=== PATIENT | male | born 1935 | race Caucasian/White ===

== ENCOUNTER 2018-10-14 16:51 | Outpatient (REF) | payer MEDICARE, OTHER, SELFPAY ==
[2018-10-14 19:25] LABS: HCT 31.7 % (40.0-50.0); HGB 10.9 g/dL (13.5-17.5); Mean Corp. HGB Concentration 34.4 g/dL (32.0-36.0); Mean Corpuscular Hemoglobin 32.2 pg (27.0-33.0); Mean Corpuscular Volume 93.5 fL (80-95); Mean Platelet Volume 11.3 fL (8.0-11.0); Platelet Count 114 x1000/uL (130-400); RBC 3.39 m/cumm (4.50-6.00); RBC Distribution Width 11.8 % (11.8-14.1); White Blood Cell Count 4.38 k/cumm (4.4-10.8)
[2018-10-14 19:52] LABS: ALT 26 U/L (12-78); AST 20 U/L (15-37); Albumin 3.9 g/dL (3.4-5.0); Alkaline Phosphatase 48 U/L (46-116); Anion Gap 8.3 mmol/L (3-11); BUN 28 mg/dL (7-18); Bilirubin, Total 0.2 mg/dL (0.2-1.0); CO2 28.7 mmol/L (21.0-32.0); CREATININE 1.04 mg/dL (0.70-1.30); Calcium 9.1 mg/dL (8.5-10.1); Chloride 104 mmol/L (98-107); Glucose 176 mg/dL (70-100); Potassium 4.3 mmol/L (3.5-5.1); Sodium 141 mmol/L (136-145); TSH 2.01 uIU/mL (0.358-3.74); Total Protein 7.2 g/dL (6.4-8.2)
== END 2018-10-14 17:11 ==
LOC: NCHCN 16:51
PROVIDERS: PCP Internal Medicine; Visit Provider Internal Medicine
DX: I10 Essential (primary) hypertension (principal); L30.9 Dermatitis, unspecified
CPT/HCPCS: 80053; 85027; 84443

== ENCOUNTER 2018-11-08 07:35 | Outpatient (CLI) | payer MEDICARE, OTHER, SELFPAY ==
--- NOTE | 2018-11-08 09:30 | MERGEMPI_ITS ---
*[facility]* *[facility]* [address] [place] [address] Myocardial Perfusion Imaging - SPECT Regadenoson Date of study: 11/08/2018 *PATIENT PRESENTATION* Height: 170.2cm (67in) Blood Pressure: Weight: 83.6kg (184lb) BSA: 2.01m^2 Referring physician: Abel Maxwell MD Ordering physician: Redd Obregon MD Impressions: Normal perfusion by Tc99m Sestamibi Imaging. Summary: 1. Myocardial perfusion imaging: No myocardial perfusion defects noted. 2. The calculated left ventricular ejection fraction after stress: 54%. No left ventricular regional motion abnormality. Indication: R07.9. History: REASON FOR VISIT: CHEST PAIN. DESCRIBED BY PT A SLIGHT DISCOMFORT HIS LAST EPISODE WAS TWO WEEKS AGO WHILE SITTING DOWN. IT ONLY LASTED A FEW SECONDS. Risk factors: BORDERLINE DIABETES. Family history of coronary artery disease. Hypertension. Diabetes mellitus. Dyslipidemia. ALLERGIES: PENICILLIN. MEDICATIONS: LISINOPRIL. ATORVASTATIN. GLUCOSAMINE CHOND COMPLEX. ZOLPIDEM TARTRATE 5 MG DAILY. ASPIRIN 81 MG DAILY. SERTRALINE 50 MG DAILY. Imaging Technique: Protocol: Regadenoson. Acquisition: Gated SPECT; 1 day - rest/stress. The patient was imaged in the supine position. Attenuation correction used. Isotope administration: - Rest. Tc[99m]-sestamibi. Dose: 10.1mCi. Injection time: 09:50 AM. Injection to stress time: 00:45. - Stress. Tc[99m]-sestamibi. Dose: 33.1mCi. Injection time: 12:20 PM. 1-2 min before end of exercise Baseline ECG: SINUS RYTHM. PACs HR 66 BPM. Stress protocol: +--------+--+ + + !Stage !HR!BP (mmHg) !Comments ! +--------+--+ + + !Baseline!66!170/78 (109)! ! +--------+--+ + + !1 min !90!176/70 (105)!Inject Regadenoson.! +--------+--+ + + !3 min !86!180/72 (108)! ! +--------+--+ + + !6 min !83!160/76 (104)! ! +--------+--+ + + * Stress results: The rate-pressure product for the peak heart rate and blood pressure was 17102rq Hg/min. Stress ECG: STRESS TEST ENDED IN 6 MINUTES AND 16 SECONDS. PT EXPERIENCED NO SIDE EFFECTS FROM LEXISCAN INJECTION. NORMAL HEART RATE AND BLOOD PRESSURE RESPONSE TO LEXISCAN INJECTION. FREQUENT PACs. NO ANGINA. NO SIGNIFICANT ST SEGMENT CHANGES. Myocardial perfusion: Imaging information: gated. No myocardial perfusion defects noted. Ventricular Function (Wall Motion): The calculated left ventricular ejection fraction after stress: 54%. No left ventricular regional motion abnormality. Study data: Abel Maxwell MD supervised and was readily available during the procedure. This study was interpreted by [facility]. Study status: Routine. Consent: The risks, benefits, and alternatives to the procedure were explained to the patient and informed consent was obtained. Procedure: Initial setup. A baseline ECG was recorded. Surface ECG leads and manual cuff blood pressure measurements were monitored. Heart sounds: Normal. Lung sounds: Normal. Regadenoson stress test. Stress testing was performed, with regadenoson by intravenous bolus, for a total dose of 0.4mgover 10.00sec, followed by a 5ml saline flush. The infusion was terminated due to per protocol. The patient was unable to exercise due to leg, joint, or back pain. Study completion: All catheters inserted during the procedure were removed. The patient tolerated the procedure well and was discharged from the lab. Discharge: The patient left the laboratory in stable condition. Birthdate: Patient birthdate: 1935. Sex: Gender: male. Study date: Study date: 11/08/2018. Study time: 00:01 AM. Electronically signed by Abel Maxwell MD 11/08/2018 16:20
[2018-11-08] MEDS: Regadenoson 0.4 MG/5 ML SYR IVP (12:14)
== END 2018-11-08 07:55 ==
PROVIDERS: PCP Internal Medicine; Visit Provider Internal Medicine
DX: R07.9 Chest pain, unspecified (principal); I10 Essential (primary) hypertension
CPT/HCPCS: 78452; 93016; 93018; 93017; J2785

== ENCOUNTER 2019-01-04 10:32 | Outpatient (REF) | payer MEDICARE, OTHER, SELFPAY ==
[2019-01-06 09:59] LABS: PSA, Diagnostic 3.7 ng/ml (0-6.5)
== END 2019-01-04 10:52 ==
LOC: NCHCN 10:32
PROVIDERS: PCP Internal Medicine; Visit Provider Internal Medicine
DX: M54.31 Sciatica, right side (principal); M54.32 Sciatica, left side
CPT/HCPCS: 84153

== ENCOUNTER 2019-02-28 14:06 | Outpatient (REF) | payer MEDICARE, OTHER, SELFPAY ==
[2019-02-28 19:05] LABS: COMMENT (LAB VIEW ONLY) 167.17 mg/dL; Microalb ug/mg Crea 5.4 ug/mg Cr
== END 2019-02-28 14:26 ==
LOC: NCHCO 14:06
PROVIDERS: PCP Internal Medicine; Visit Provider Internal Medicine
DX: R07.89 Other chest pain (principal); E11.9 Type 2 diabetes mellitus without complications; I10 Essential (primary) hypertension; M54.31 Sciatica, right side
CPT/HCPCS: 82043; 82570

== ENCOUNTER 2019-10-10 10:34 | Outpatient (REF) | payer MEDICARE, OTHER, SELFPAY ==
[2019-10-10 19:31] LABS: ALT 27 U/L (16-63); Anion Gap 9.4 mmol/L (3-11); BUN 25 mg/dL (7-18); CO2 27.6 mmol/L (21.0-32.0); CREATININE 1.04 mg/dL (0.70-1.30); Calcium 8.9 mg/dL (8.5-10.1); Chloride 103 mmol/L (98-107); Glucose 156 mg/dL (74-106); LDL CHOLESTEROL 67 mg/dL (<100); Potassium 4.2 mmol/L (3.5-5.1); Sodium 140 mmol/L (136-145)
[2019-10-10 19:35] LABS: Hemoglobin A1C 6.6 % (3.8-5.6)
== END 2019-10-10 10:54 ==
LOC: NCHCN 10:34
PROVIDERS: PCP Internal Medicine; Visit Provider Internal Medicine
DX: E11.9 Type 2 diabetes mellitus without complications (principal); I10 Essential (primary) hypertension
CPT/HCPCS: 80048; 83721; 83036; 84460

== ENCOUNTER 2019-11-15 14:29 | Outpatient (REF) | payer MEDICARE, OTHER, SELFPAY ==
[2019-11-15 19:25] LABS: Abs Immature Grans 0.01 k/cumm (0.0-0.09); Absolute Basophil Count 0.01 k/cumm (0.0-0.2); Absolute Eosinophil Count 0.14 k/cumm (0.0-0.7); Absolute Lymphocyte Count 1.07 k/cumm (1.2-3.4); Absolute Monocyte Count 1.21 k/cumm (0.11-0.7); Absolute Neutrophil Count 4.03 k/cumm (1.2-6.7); Basophils % 0.2; Eosinophils % 2.2; HCT 35.1 % (40.0-50.0); HGB 12.3 g/dL (13.5-17.5); Immature Grans % 0.2 %; Lymphocytes % 16.5; Mean Corpuscular Hemoglobin 32.3 pg (27.0-33.0); Mean Corpuscular Volume 92.1 fL (80-95); Mean Platelet Volume 10.9 fL (8.0-11.0); Monocytes % 18.7; Neutrophils % 62.2; Platelet Count 164 x1000/uL (130-400); RBC 3.81 m/cumm (4.50-6.00); RBC Distribution Width 11.5 % (11.8-14.1); White Blood Cell Count 6.47 k/cumm (4.4-10.8)
[2019-11-15 19:31] LABS: ALT 21 U/L (16-63); AST 14 U/L (15-37); Albumin 3.6 g/dL (3.4-5.0); Alkaline Phosphatase 44 U/L (46-116); Anion Gap 10.3 mmol/L (3-11); BUN 21 mg/dL (7-18); Bilirubin, Total 0.7 mg/dL (0.2-1.0); CO2 26.7 mmol/L (21.0-32.0); CREATININE 1.07 mg/dL (0.70-1.30); Calcium 9.2 mg/dL (8.5-10.1); Chloride 102 mmol/L (98-107); Glucose 195 mg/dL (74-106); Sodium 139 mmol/L (136-145); Total Protein 6.8 g/dL (6.4-8.2)
== END 2019-11-15 14:49 ==
LOC: NCHCN 14:29
PROVIDERS: PCP Internal Medicine; Visit Provider Physician Assistant
DX: M54.31 Sciatica, right side (principal); Z01.818 Encounter for other preprocedural examination
CPT/HCPCS: 80053; 85025

== ENCOUNTER 2019-12-09 19:25 | Outpatient (REF) | payer MEDICARE, OTHER, SELFPAY | END 2019-12-09 19:45 | LOC: NCHCN 19:25 | PROVIDERS: PCP Internal Medicine; Visit Provider Physician Assistant | DX: R35.0 Frequency of micturition (principal) | CPT/HCPCS: 87086 ==

== ENCOUNTER 2020-04-16 23:20 | Outpatient (REF) | payer MEDICARE, OTHER, SELFPAY ==
[2020-04-16 20:49] LABS: Uric Acid 5.3 mg/dL (3.5-7.2)
== END 2020-04-16 23:40 ==
LOC: NCHCN 23:20
PROVIDERS: PCP Internal Medicine; Visit Provider Nurse Practitioner Family
DX: M10.9 Gout, unspecified (principal)
CPT/HCPCS: 84550

== ENCOUNTER 2020-04-25 10:43 | Outpatient (REF) | payer MEDICARE, OTHER, SELFPAY ==
[2020-04-28 09:16] LABS: COVID-19 RT-PCR UVMMC Result Negative (Negative)
== END 2020-04-25 11:03 ==
LOC: NCHCN 10:43
PROVIDERS: PCP Internal Medicine; Visit Provider Internal Medicine
DX: Z20.828 Contact with and (suspected) exposure to other viral communicable diseases (principal)
CPT/HCPCS: U0003

== ENCOUNTER 2020-08-02 11:34 | Outpatient (REF) | payer MEDICARE, OTHER, SELFPAY ==
[2020-08-02 16:13] LABS: HCT 35.6 % (40.0-50.0); HGB 12.6 g/dL (13.5-17.5); MCH 31.8 pg (27.0-33.0); MCHC 35.4 % (32.0-36.0); MCV 89.9 fL (80-95); MPV 11.5 fL (8.0-11.0); Platelet Count 141 10^3/uL (130-400); RBC 3.96 10^6/uL (4.36-5.78); RDW 11.7 % (11.8-14.1); RDW-SD 38.2 fL; WBC 5.18 10^3/uL (4.4-10.8)
[2020-08-02 16:35] LABS: Uric Acid 4.5 mg/dL (3.5-7.2)
== END 2020-08-02 11:35 | disposition home or self-care (01) ==
LOC: NCHCN 11:34
PROVIDERS: PCP Internal Medicine; Visit Provider Internal Medicine
DX: M10.19 Lead-induced gout, multiple sites (principal)
CPT/HCPCS: 85027; 84550

== ENCOUNTER 2021-05-23 16:16 | Outpatient (REF) | payer MEDICARE, OTHER, SELFPAY ==
[2021-05-25 12:01] LABS: COVID-19 RT-PCR UVMMC Result Negative (Negative)
== END 2021-05-23 16:17 | disposition home or self-care (01) ==
LOC: NCHCN 16:16
PROVIDERS: PCP Internal Medicine; Visit Provider Internal Medicine
DX: Z20.822 Contact with and (suspected) exposure to COVID-19 (principal); R52 Pain, unspecified
CPT/HCPCS: U0003

== ENCOUNTER 2021-06-06 19:09 | Outpatient (REF) | payer MEDICARE, OTHER, SELFPAY ==
[2021-06-06 19:20] LABS: HCT 35.1 % (40.0-50.0); HGB 12.1 g/dL (13.5-17.5); MCH 31.8 pg (27.0-33.0); MCHC 34.5 % (32.0-36.0); MCV 92.1 fL (80-95); MPV 11.2 fL (8.0-11.0); Platelet Count 157 10^3/uL (130-400); RBC 3.81 10^6/uL (4.36-5.78); RDW 12.6 % (11.8-14.1)
[2021-06-06 19:50] LABS: Anion Gap 10.1 mmol/L (3-11); BUN 28 mg/dL (7-18); CO2 23.9 mmol/L (21.0-32.0); CREATININE 1.1 mg/dL (0.70-1.30); Calcium 8.8 mg/dL (8.5-10.1); Chloride 106 mmol/L (98-107); Glucose 200 mg/dL (74-106); LDL CHOLESTEROL 78 mg/dL (<100); Potassium 4.1 mmol/L (3.5-5.1); Sodium 140 mmol/L (136-145); TSH 2.51 uIU/mL (0.36-3.74)
== END 2021-06-06 19:10 | disposition home or self-care (01) ==
LOC: NCHCN 19:09
PROVIDERS: PCP Internal Medicine; Visit Provider Internal Medicine
DX: I10 Essential (primary) hypertension (principal); R53.83 Other fatigue; F32.9 Major depressive disorder, single episode, unspecified
CPT/HCPCS: 80048; 83721; 85027; 84443

== ENCOUNTER 2021-12-24 15:47 | Outpatient (REF) | payer MEDICARE, OTHER, SELFPAY ==
[2021-12-24 20:31] LABS: COMMENT (LAB VIEW ONLY) 185.08 mg/dL; Microalb ug/mg Crea 11.5 ug/mg Cr
== END 2021-12-24 15:48 | disposition home or self-care (01) ==
LOC: NCHCN 15:47
PROVIDERS: PCP Internal Medicine; Visit Provider Internal Medicine
DX: E11.9 Type 2 diabetes mellitus without complications (principal)
CPT/HCPCS: 82043; 82570

== ENCOUNTER 2022-03-19 16:12 | Outpatient (REF) | payer MEDICARE, OTHER, SELFPAY ==
[2022-03-19 21:00] LABS: Bacteria Rare HPF (Negative); C & S Indicated? No; Crystals Mod Calcium Oxalate HPF (Negative); Epithelial Cells Rare HPF (Negative); Mucus Negative (Negative); RBC 0-2 HPF (0-2); WBC 0-2 HPF (0-5)
== END 2022-03-19 16:13 | disposition home or self-care (01) ==
LOC: NCHCN 16:12
PROVIDERS: PCP Internal Medicine; Visit Provider Internal Medicine
DX: R10.9 Unspecified abdominal pain (principal)
CPT/HCPCS: 81015

== ENCOUNTER 2022-04-24 16:46 | Outpatient (REF) | payer MEDICARE, OTHER, SELFPAY ==
[2022-04-24 19:28] LABS: Albumin 4.1 g/dL (3.4-5.0); Anion Gap 9.6 mmol/L (3-11); BUN 36 mg/dL (7-18); CO2 25.4 mmol/L (21.0-32.0); CREATININE 1.3 mg/dL (0.70-1.30); Calcium 9.1 mg/dL (8.5-10.1); Chloride 103 mmol/L (98-107); Estimated GFR 54.17 (mL/min/1.73m2); Glucose 160 mg/dL (74-106); PHOSPHORUS 3.6 mg/dL (2.6-4.7); Potassium 4.3 mmol/L (3.5-5.1); Sodium 138 mmol/L (136-145); TSH 3.44 uIU/mL (0.36-3.74)
== END 2022-04-24 16:47 | disposition home or self-care (01) ==
LOC: NCHCN 16:46
PROVIDERS: PCP Internal Medicine; Visit Provider Internal Medicine
DX: R07.89 Other chest pain (principal)
CPT/HCPCS: 80069; 84443

== ENCOUNTER 2022-08-04 20:08 | Outpatient (REF) | payer MEDICARE, OTHER, SELFPAY ==
[2022-08-04 20:28] LABS: HCT 35.7 % (40.0-50.0); HGB 12.6 g/dL (13.5-17.5); MCH 32.5 pg (27.0-33.0); MCHC 35.3 % (32.0-36.0); MCV 92 fL (80-95); MPV 11.9 fL (8.0-11.0); Platelet Count 147 10^3/uL (130-400); RBC 3.88 10^6/uL (4.36-5.78); RDW 11.8 % (11.8-14.1); RDW-SD 39.5 fL; WBC 6.33 10^3/uL (4.4-10.8)
[2022-08-04 20:41] LABS: ALT 37 U/L (16-63); AST 21 U/L (15-37); Albumin 3.9 g/dL (3.4-5.0); Alkaline Phosphatase 66 U/L (46-116); Anion Gap 11.2 mmol/L (3-11); BUN 33 mg/dL (7-18); Bilirubin, Total 0.3 mg/dL (0.2-1.0); CO2 23.8 mmol/L (21.0-32.0); CREATININE 1.6 mg/dL (0.70-1.30); Chloride 101 mmol/L (98-107); Estimated GFR 41.96 (mL/min/1.73m2); Potassium 4.1 mmol/L (3.5-5.1); Sodium 136 mmol/L (136-145); Total Protein 7.6 g/dL (6.4-8.2)
[2022-08-04 20:42] LABS: Glucose 492 mg/dL (74-106)
== END 2022-08-04 20:09 | disposition home or self-care (01) ==
LOC: NCHCN 20:08
PROVIDERS: PCP Internal Medicine; Visit Provider Internal Medicine
DX: R11.0 Nausea (principal)
CPT/HCPCS: 80053; 85027

== ENCOUNTER 2023-05-06 09:34 | Outpatient (REF) | payer MEDICARE, OTHER, SELFPAY ==
[2023-04-29 20:30] LABS: HGB 12.8 g/dL (13.5-17.5); MCHC 34.6 % (32.0-36.0); MCV 93 fL (80-95); MPV 10.6 fL (8.0-11.0); Platelet Count 151 10^3/uL (130-400); RDW 12.9 % (11.8-14.1); RDW-SD 43.8 fL; WBC 4.14 10^3/uL (4.4-10.8)
[2023-04-29 20:40] LABS: Anion Gap 8.6 mmol/L (3-11); BUN 27 mg/dL (7-18); CO2 27.4 mmol/L (21.0-32.0); CREATININE 1.3 mg/dL (0.70-1.30); Calcium 9.5 mg/dL (8.5-10.1); Calculated LDL 55 mg/dL (<100); Chloride 104 mmol/L (98-107); Cholesterol 148 mg/dL (<200); Estimated GFR 53.84 (mL/min/1.73m2); Glucose 124 mg/dL (74-106); HDL Cholesterol 64 mg/dL (40-60); Potassium 4.9 mmol/L (3.5-5.1); Sodium 140 mmol/L (136-145); Triglyceride 145 mg/dL (<150)
[2023-04-29 20:55] LABS: Hemoglobin A1C 6.1 % (<5.7)
== END 2023-05-06 09:35 | disposition home or self-care (01) ==
LOC: NCHCN 09:34
PROVIDERS: PCP Internal Medicine; Visit Provider Internal Medicine
DX: I10 Essential (primary) hypertension (principal); E11.9 Type 2 diabetes mellitus without complications; N18.9 Chronic kidney disease, unspecified
CPT/HCPCS: 80048; 80061; 85027; 83036

== ENCOUNTER 2023-09-15 15:22 | Outpatient (REF) | payer MEDICARE, OTHER, SELFPAY ==
[2023-09-15 19:00] LABS: Bilirubin Negative (Negative); Blood Negative (Negative); Clarity Clear (Clear); Glucose >=1000 mg/dL (Negative); Ketones Negative (Negative); Leukocyte Esterase Negative (Negative); Nitrite Negative (Negative); Specific Gravity 1.025 (1.005-1.025); Urobilinogen 0.2 mg/dL (Up to 0.2); pH 5.5 (5-8)
[2023-09-15 19:06] LABS: Bacteria Negative HPF (Negative); C & S Indicated? No; Casts Negative LPF (Negative); Crystals Negative HPF (Negative); Epithelial Cells Negative HPF (Negative); Mucus Negative (Negative); RBC 0-2 HPF (0-2); WBC 0-2 HPF (0-5)
== END 2023-09-15 15:23 | disposition home or self-care (01) ==
LOC: NCHCN 15:22
PROVIDERS: PCP Internal Medicine; Visit Provider Nurse Practitioner Family
DX: R35.0 Frequency of micturition (principal)
CPT/HCPCS: 81003; 81015

== ENCOUNTER 2024-05-30 20:08 | Outpatient (REF) | payer MEDICARE, SELFPAY ==
[2024-05-30 19:12] LABS: HCT 39.7 % (40.0-50.0); HGB 13.8 g/dL (13.5-17.5); MCHC 34.8 % (32.0-36.0); MCV 95 fL (80-95); MPV 10.5 fL (8.0-11.0); Platelet Count 155 10^3/uL (130-400); RBC 4.18 10^6/uL (4.36-5.78); RDW 12.8 % (11.8-14.1); RDW-SD 44.4 fL
[2024-05-30 19:37] LABS: ALT 17 U/L (16-63); Anion Gap 9.7 mmol/L (3-11); BUN 30 mg/dL (7-18); CO2 26.3 mmol/L (21.0-32.0); CREATININE 1.3 mg/dL (0.70-1.30); Calcium 9.5 mg/dL (8.5-10.1); Calculated LDL 63 mg/dL (<100); Chloride 106 mmol/L (98-107); Cholesterol 158 mg/dL (<200); Glucose 105 mg/dL (74-106); HDL Cholesterol 49 mg/dL (40-60); Potassium 4.3 mmol/L (3.5-5.1); Sodium 142 mmol/L (136-145); Triglyceride 234 mg/dL (<150)
[2024-05-30 19:48] LABS: Creatine Kinase 119 U/L (39-308)
== END 2024-05-30 20:09 | disposition home or self-care (01) ==
LOC: NCHCN 20:08
PROVIDERS: PCP Internal Medicine; Visit Provider Internal Medicine
DX: I10 Essential (primary) hypertension (principal)
CPT/HCPCS: 80048; 80061; 82550; 85027; 84460; 84550

== ENCOUNTER 2024-10-19 15:08 | Outpatient (REF) | payer MEDICARE, OTHER, SELFPAY ==
[2024-10-19 22:05] LABS: TSH 2.15 uIU/mL (0.36-3.74); Vitamin B12 458 pg/mL (193-986)
== END 2024-10-19 15:09 | disposition home or self-care (01) ==
LOC: NCHCN 15:08
PROVIDERS: PCP Internal Medicine; Visit Provider Internal Medicine
DX: F03.A3 Unspecified dementia, mild, with mood disturbance (principal)
CPT/HCPCS: 82607; 84443

== ENCOUNTER 2025-04-24 21:19 | Outpatient (REF) | payer MEDICARE, OTHER, SELFPAY ==
[2025-04-24 19:51] LABS: HCT 35.1 % (40.0-50.0); HGB 12.0 g/dL (13.5-17.5); MCH 32.4 pg (27.0-33.0); MCHC 34.2 % (32.0-36.0); MCV 95 fL (80-95); MPV 10.8 fL (8.0-11.0); Platelet Count 176 10^3/uL (130-400); RBC 3.70 10^6/uL (4.36-5.78); RDW 12.3 % (11.8-14.1); RDW-SD 42.5 fL; WBC 6.72 10^3/uL (4.4-10.8)
[2025-04-24 20:06] LABS: ALT 22 U/L (10-49); AST 22 U/L (<34); Albumin 4.3 g/dL (3.2-5.0); Alkaline Phosphatase 54 U/L (46-116); Anion Gap 11.5 mmol/L (3-11); BUN 28 mg/dL (9-23); Bilirubin, Total 0.30 mg/dL (0.2-1.2); CO2 24.5 mmol/L (20.0-31.0); Calcium 9.3 mg/dL (8.3-10.6); Chloride 105 mmol/L (98-107); Glucose 148 mg/dL (74-106); Potassium 4.1 mmol/L (3.5-5.1); Sodium 141 mmol/L (136-145); Total Protein 7.2 g/dL (5.7-8.2)
== END 2025-04-24 21:20 | disposition home or self-care (01) ==
LOC: NCHCN 21:19
PROVIDERS: Nurse Practitioner Family; PCP Internal Medicine; Visit Provider Internal Medicine
DX: R19.5 Other fecal abnormalities (principal)
CPT/HCPCS: 80053; 85027

== ENCOUNTER 2025-05-02 18:25 | Outpatient (REF) | payer MEDICARE, OTHER, SELFPAY ==
[2025-05-02 18:44] LABS: HCT 37.4 % (40.0-50.0); HGB 13.4 g/dL (13.5-17.5); MCH 34.4 pg (27.0-33.0); MCHC 35.8 % (32.0-36.0); MCV 96 fL (80-95); MPV 10.6 fL (8.0-11.0); Platelet Count 204 10^3/uL (130-400); RBC 3.89 10^6/uL (4.36-5.78); RDW 12.9 % (11.8-14.1); RDW-SD 45.1 fL; WBC 5.88 10^3/uL (4.4-10.8)
== END 2025-05-02 18:26 | disposition home or self-care (01) ==
LOC: NCHCN 18:25
PROVIDERS: PCP Internal Medicine; Visit Provider Nurse Practitioner Family
DX: D64.9 Anemia, unspecified (principal)
CPT/HCPCS: 85027